=== PATIENT | female | born 1935 | race Caucasian/White ===

== ENCOUNTER 2016-07-22 10:41 | Emergency (ER) | payer OTHER ==
--- NOTE | 2016-07-22 14:17 | DIAGNOSTIC IMAGING REPORT ---
PROCEDURE: CT ABDOMEN/PELVIS W/O CONTRAST INDICATION: Right lower quadrant pain. Initial encounter. TECHNIQUE: Noncontrast axial images were obtained of the entire abdomen and pelvis with sagittal and coronal reformations. COMPARISON: Abdominal ultrasound 10/08/[address] abdomen/pelvis 06/28/2011. FINDINGS: ABDOMEN: Mild right basilar scarring. Calcified granuloma. Stable moderate cardiomegaly and moderate pericardial effusion with pacing wire. Small bilateral pleural effusions. Cholecystectomy. Irregular liver contour. Pancreas, spleen and adrenal glands are normal. Bilateral renal atrophy and bilateral renal cysts. Mid right renal cortical calcified scar. Moderate atherosclerosis. PELVIS: Normal appendix. Hysterectomy. Normal bladder. There is no pelvic mass, inflammatory changes or free fluid. Osteopenia. Moderate chronic- appearing L1 and severe L2 fractures, new since the prior CT scan. Moderately severe degenerative changes. IMPRESSION: 1. Normal appendix 2. Cholecystectomy and hysterectomy 3. Irregular liver contour suggestive of cirrhosis 4. Bilateral renal atrophy 5. Moderate cardiomegaly and moderate pericardial effusion 6. Small bilateral pleural effusions 7. Results discussed with Dr. Delaney All CT scans at this facility use dose modulation, iterative reconstruction, and/or weight-based dosing when appropriate to reduce radiation dose to as low as reasonably achievable.
--- NOTE | 2016-07-22 15:20 | ED CLINICAL REPORT ---
Clinical Report - Physicians/Mid Levels [facility] [address] [place] [address] 07/22/2016 10:43 Patient: BAR FRYE Time Seen: 11:24. Arrived- By private vehicle. Historian- patient and family. HISTORY OF PRESENT ILLNESS Chief Complaint: ABDOMINAL PAIN. At its maximum, severity described as 9 / 10. When seen in the E.D., severity described as 9 / 10. This started 5 days ago and is still present. It was abrupt in onset. It is described as "pain" and it is described as located in the right flank and the right abdomen and right lower quadrant. The patient has had nausea and loss of appetite. No vomiting. Similar symptoms previously: ( PUD). Recent medical care: The patient was seen recently at another facility in a clinic. ( Yesterday - [facility] visit. Told to come to ED today. Those records are requested but are available in time for help in decision making.). REVIEW OF SYSTEMS The patient has had a hysterectomy. No constipation, black stools, difficulty with urination or urination or pain with urination. No urinary frequency, chills, fever, ear pain or sore throat. No chest pain or difficulty breathing. Last bowel movement: today. The patient has had abdominal pain. PAST HISTORY PCP: Dr Sandra RENEE Ops: Hyst, Omentectomy, GB, Pacemaker/defibrillator, bilateral carpal tunnel Illness: Glaucoma, CHF, Aortic stenosis (not operative candidate) contrast allergy From old record: PROBLEMS: Cholecystitis. Peptic Ulcer Disease. Spinal fractures. Chronic Fatigue Syndrome. Gout. Congestive Heart Failure. Diabetes Mellitus. Hypothyroidism. Abdominal Pain. Immunizations. ADDITIONAL SURGERIES: AICD. Cholecystectomy. Hemorrhoidectomy. Hysterectomy. Pacemaker. ADDITIONAL NOTES The nursing notes have been reviewed. PHYSICAL EXAM Vital Signs: 07/22/2016 14:34 BP: 101/61. HR: 87. RR: 20. O2 saturation: 98%. Pain level now: 09/25. 07/22/2016 13:59 BP: 98/61. HR: 87. RR: 20. O2 saturation: 98%. Pain level now: 09/25. 07/22/2016 11:02 BP: 102/69. HR: 81. RR: 20. O2 saturation: 97%. Temp: 97.6 F. Pain level now: 11/26. Appearance: Alert. No acute distress. Eyes: No scleral icterus or pale conjunctivae. ENT: Pharynx normal. Neck: Normal inspection. (generous neck veins.). CVS: Heart sounds normal. Respiratory: No respiratory distress. Breath sounds normal. Abdomen: Tenderness in the upper abdomen, right upper quadrant and right side of the abdomen. No organomegaly. No mass. Back: No CVA tenderness. Skin: Skin warm. Normal skin color. Extremities: Extremities exhibit normal ROM. No lower extremity edema. Neuro: No alteration in mental status. LABS, X-RAYS, AND EKG Abdominal CT: PROCEDURE: CT ABDOMEN/PELVIS W/O CONTRAST INDICATION: Right lower quadrant pain. Initial encounter. TECHNIQUE: Noncontrast axial images were obtained of the entire abdomen and pelvis with sagittal and coronal reformations. COMPARISON: Abdominal ultrasound 10/08/[address] abdomen/pelvis 06/28/2011. FINDINGS: ABDOMEN: Mild right basilar scarring. Calcified granuloma. Stable moderate cardiomegaly and moderate pericardial effusion with pacing wire. Small bilateral pleural effusions. Cholecystectomy. Irregular liver contour. Pancreas, spleen and adrenal glands are normal. Bilateral renal atrophy and bilateral renal cysts. Mid right renal cortical calcified scar. Moderate atherosclerosis. PELVIS: Normal appendix. Hysterectomy. Normal bladder. There is no pelvic mass, inflammatory changes or free fluid. Osteopenia. Moderate chronic-appearing L1 and severe L2 fractures, new since the prior CT scan. Moderately severe degenerative changes. IMPRESSION: 1. Normal appendix 2. Cholecystectomy and hysterectomy 3. Irregular liver contour suggestive of cirrhosis 4. Bilateral renal atrophy 5. Moderate cardiomegaly and moderate pericardial effusion 6. Small bilateral pleural effusions 7. Results discussed with Dr. Delaney Electronically Final signed by:Cristiano Arnold MD 07/22/2016 2:16:59 PM. Laboratory Tests: UA-Culture if indicated: (SUMEET: 07/22/2016 10:50) ( MsgRcvd 07/22/2016 11:46) Final results Test Result Flag Units (Reference) URINE COLOR YELLOW URINE APPEARANCE CLEAR URINE GLUCOSE NEGATIVE (NEGATIVE) URINE BILIRUBIN NEGATIVE (NEGATIVE) URINE KETONE NEGATIVE (NEGATIVE) URINE SPECIFIC GRAVITY 1.015 (1.010-1.030) URINE PH 5.0 (5.0-8.0) URINE PROTEIN NEGATIVE (NEGATIVE) URINE UROBILINOGEN 0.2 EU/dL (0.2-1.0) URINE NITRITE NEGATIVE (NEGATIVE) URINE BLOOD NEGATIVE (NEGATIVE) URINE LEUK ESTERASE NEGATIVE (NEGATIVE) URINE RBC 0-1 rbc/hpf (0-1) URINE WBC 0-1 wbc/hpf (0-1) URINE EPITHELIAL CELLS 3-5 EPI/hpf (0-5) URINE BACTERIA TRACE (<1+) (NONE SEEN) URINE COMMENT CULT NOT INDICATED URINE CULTURES ARE SET-UP BASED ON THE FOLLOWING CRITERIA:POSITIVE NITRITEPOSITIVE LEUKOCYTE ESTERASEGREATER THAN 10 WHITE BLOOD CELLSMODERATE (2+) OR GREATER BACTERIA CBC w Diff: (SUMEET: 07/22/2016 11:25) ( [facility] 07/22/2016 11:32) Final results Test Result Flag Units (Reference) WHITE BLOOD COUNT 5.5 K/uL (4.5-11.5) RED BLOOD COUNT 4.42 M/uL (4.00-5.20) HEMOGLOBIN 13.5 gm/dL (12.0-16.0) HEMATOCRIT 41.9 % (36.0-46.0) MEAN CELL VOLUME 95 fL (80-100) MEAN CORPUSCULAR HGB 31 pg (26-34) MEAN CORPUSCULAR HGB CONC 32 g/dL (31-37) RED CELL DISTRIBUTION WIDTH 14.5 % (11.6-14.8) PLATELET COUNT 105 L K/uL (150-400) NEUTROPHIL % 61.8 % (50-75) LYMPH % 20.2 L % (25-40) MONO % 13.8 % (3-14) EOSINOPHIL % 3.2 % (0-4) BASOPHIL % 1.0 % (0-2) PT with INR: (SUMEET: 07/22/2016 11:25) ( [facility] 07/22/2016 11:41) Final results Test Result Flag Units (Reference) INR 1.1 (0.8-1.2) Low Intensity Therapy: INR 1.5-2.0 PT range 18.5-23.1Mod.Intensity Therapy: INR 2.0-3.0 PT range 23.1-31.5High Intensity Therapy: INR 2.5-3.5 PT range 27.4-35.5High Intensity Therapy 2: INR 3.0-4.0 PT range 31.5-39.3 BNP: (SUMEET: 07/22/2016 12:50) ( [facility] 07/22/2016 13:46) Final results Test Result Flag Units (Reference) B-TYPE NATRIURETIC PEPTIDE 112 H pg/ml (5-100) Lactate, Serum: (SUMEET: 07/22/2016 11:41) ( [facility] 07/22/2016 12:11) Final results Test Result Flag Units (Reference) LACTIC ACID 0.6 mmol/L (0.4-2.0) CMP: (SUMEET: 07/22/2016 11:25) ( [facility] 07/22/2016 11:51) Final results Test Result Flag Units (Reference) GLUCOSE 91 mg/dL (70-110) BUN 58 H mg/dL (7-18) CREATININE 1.4 H mg/dL (0.6-1.3) Estimated GFR 38.26 mL/min Estimated GFR- 46.37 mL/min Note: Persistent reduction over 3 months in eGFR<60 mL/min/1.73 m2 defines CKD. Patients with eGFR values>=60 mL/min/1.73 m2 may also have CKD if evidence ofpersistent proteinuria. Additional information may be foundat [email or web address]. SODIUM 143 mmol/L (136-145) POTASSIUM 4.4 mmol/L (3.5-5.1) CHLORIDE 104 mmol/L (98-107) CARBON DIOXIDE 29 mmol/L (21-32) CALCIUM 9.2 mg/dL (8.5-10.1) TOTAL PROTEIN 7.5 g/dL (6.4-8.2) ALBUMIN 3.7 g/dL (3.3-5.0) BILIRUBIN, TOTAL 1.7 H mg/dL (0.0-1.0) ALKALINE PHOSPHATASE 104 U/L (46-116) AST (SGOT) 31 U/L (15-37) ALT (SGPT) 26 U/L (12-78) LIPASE 359 U/L (73-393) AMYLASE 105 U/L (25-115) . PROGRESS AND PROCEDURES Course of Care: 13:11 07/22/16. Reexam. Tenderness persists. No peritoneal signs. History, physical exam, lab and CT do not support acute surgical abdomen at this time. Careful follow up as soon as 12 hours is indicated if pain is not improved. Ms Frye wonders it this could be a return of prior PUD symptoms. That is possible. I will instantiate appropriate treatment. Disposition: Discharged. Condition: good. CLINICAL IMPRESSION Acute abdominal pain of unknown cause. INSTRUCTIONS (WE WILL DO A TRIAL OF ULCER TREATMENT WITH CARAFATE AND TAGAMET MAALOX AND MYLANTA RE CHECK IN 12 HOURS UNLESS PAIN IS BETTER 12 HOURS OF CLEAR LIQUIDS.). Prescription Medications: Zofran 4 mg: Take 1 orally every six hours as needed for nausea/vomiting. Dispense ten (10). No refills. Substitution is permissible. Carafate 1 gm tablets: take 1 orally four times daily (1 hour before meals and at bedtime). Dispense sixty (60). No refills. Substitution is permissible. Tagamet 400 mg: Take 1 orally every 12 hours. Dispense thirty (30). No refills. Substitution is permissible. Oxycodone/APAP 5 mg/325 mg: take 1-2 tablets orally every 4 hours as needed for pain. Dispense fifteen (15). No refill. Follow-up: Follow up with your doctor Sunday. Understanding of the discharge instructions verbalized by patient and family. (Electronically signed by Bart Delaney MD 07/25/2016 5:21)
--- NOTE | 2016-07-22 15:20 | ED CLINICAL REPORT ---
Clinical Report - Physicians/Mid Levels [facility] [address] [place] [address] 07/22/2016 10:43 Patient: BAR FRYE Time Seen: 11:24. Arrived- By private vehicle. Historian- patient and family. HISTORY OF PRESENT ILLNESS Chief Complaint: ABDOMINAL PAIN. At its maximum, severity described as 9 / 10. When seen in the E.D., severity described as 9 / 10. This started 5 days ago and is still present. It was abrupt in onset. It is described as "pain" and it is described as located in the right flank and the right abdomen and right lower quadrant. The patient has had nausea and loss of appetite. No vomiting. Similar symptoms previously: ( PUD). Recent medical care: The patient was seen recently at another facility in a clinic. ( Yesterday - [facility] visit. Told to come to ED today. Those records are requested but are available in time for help in decision making.). REVIEW OF SYSTEMS The patient has had a hysterectomy. No constipation, black stools, difficulty with urination or urination or pain with urination. No urinary frequency, chills, fever, ear pain or sore throat. No chest pain or difficulty breathing. Last bowel movement: today. The patient has had abdominal pain. PAST HISTORY PCP: Dr Sandra RENEE Ops: Hyst, Omentectomy, GB, Pacemaker/defibrillator, bilateral carpal tunnel Illness: Glaucoma, CHF, Aortic stenosis (not operative candidate) contrast allergy From old record: PROBLEMS: Cholecystitis. Peptic Ulcer Disease. Spinal fractures. Chronic Fatigue Syndrome. Gout. Congestive Heart Failure. Diabetes Mellitus. Hypothyroidism. Abdominal Pain. Immunizations. ADDITIONAL SURGERIES: AICD. Cholecystectomy. Hemorrhoidectomy. Hysterectomy. Pacemaker. ADDITIONAL NOTES The nursing notes have been reviewed. PHYSICAL EXAM Vital Signs: 07/22/2016 14:34 BP: 101/61. HR: 87. RR: 20. O2 saturation: 98%. Pain level now: 09/25. 07/22/2016 13:59 BP: 98/61. HR: 87. RR: 20. O2 saturation: 98%. Pain level now: 09/25. 07/22/2016 11:02 BP: 102/69. HR: 81. RR: 20. O2 saturation: 97%. Temp: 97.6 F. Pain level now: 11/26. Appearance: Alert. No acute distress. Eyes: No scleral icterus or pale conjunctivae. ENT: Pharynx normal. Neck: Normal inspection. (generous neck veins.). CVS: Heart sounds normal. Respiratory: No respiratory distress. Breath sounds normal. Abdomen: Tenderness in the upper abdomen, right upper quadrant and right side of the abdomen. No organomegaly. No mass. Back: No CVA tenderness. Skin: Skin warm. Normal skin color. Extremities: Extremities exhibit normal ROM. No lower extremity edema. Neuro: No alteration in mental status. LABS, X-RAYS, AND EKG Abdominal CT: PROCEDURE: CT ABDOMEN/PELVIS W/O CONTRAST INDICATION: Right lower quadrant pain. Initial encounter. TECHNIQUE: Noncontrast axial images were obtained of the entire abdomen and pelvis with sagittal and coronal reformations. COMPARISON: Abdominal ultrasound 10/08/[address] abdomen/pelvis 06/28/2011. FINDINGS: ABDOMEN: Mild right basilar scarring. Calcified granuloma. Stable moderate cardiomegaly and moderate pericardial effusion with pacing wire. Small bilateral pleural effusions. Cholecystectomy. Irregular liver contour. Pancreas, spleen and adrenal glands are normal. Bilateral renal atrophy and bilateral renal cysts. Mid right renal cortical calcified scar. Moderate atherosclerosis. PELVIS: Normal appendix. Hysterectomy. Normal bladder. There is no pelvic mass, inflammatory changes or free fluid. Osteopenia. Moderate chronic-appearing L1 and severe L2 fractures, new since the prior CT scan. Moderately severe degenerative changes. IMPRESSION: 1. Normal appendix 2. Cholecystectomy and hysterectomy 3. Irregular liver contour suggestive of cirrhosis 4. Bilateral renal atrophy 5. Moderate cardiomegaly and moderate pericardial effusion 6. Small bilateral pleural effusions 7. Results discussed with Dr. Delaney Electronically Final signed by:Cristiano Arnold MD 07/22/2016 2:16:59 PM. Laboratory Tests: UA-Culture if indicated: (SUMEET: 07/22/2016 10:50) ( MsgRcvd 07/22/2016 11:46) Final results Test Result Flag Units (Reference) URINE COLOR YELLOW URINE APPEARANCE CLEAR URINE GLUCOSE NEGATIVE (NEGATIVE) URINE BILIRUBIN NEGATIVE (NEGATIVE) URINE KETONE NEGATIVE (NEGATIVE) URINE SPECIFIC GRAVITY 1.015 (1.010-1.030) URINE PH 5.0 (5.0-8.0) URINE PROTEIN NEGATIVE (NEGATIVE) URINE UROBILINOGEN 0.2 EU/dL (0.2-1.0) URINE NITRITE NEGATIVE (NEGATIVE) URINE BLOOD NEGATIVE (NEGATIVE) URINE LEUK ESTERASE NEGATIVE (NEGATIVE) URINE RBC 0-1 rbc/hpf (0-1) URINE WBC 0-1 wbc/hpf (0-1) URINE EPITHELIAL CELLS 3-5 EPI/hpf (0-5) URINE BACTERIA TRACE (<1+) (NONE SEEN) URINE COMMENT CULT NOT INDICATED URINE CULTURES ARE SET-UP BASED ON THE FOLLOWING CRITERIA:POSITIVE NITRITEPOSITIVE LEUKOCYTE ESTERASEGREATER THAN 10 WHITE BLOOD CELLSMODERATE (2+) OR GREATER BACTERIA CBC w Diff: (SUMEET: 07/22/2016 11:25) ( [facility] 07/22/2016 11:32) Final results Test Result Flag Units (Reference) WHITE BLOOD COUNT 5.5 K/uL (4.5-11.5) RED BLOOD COUNT 4.42 M/uL (4.00-5.20) HEMOGLOBIN 13.5 gm/dL (12.0-16.0) HEMATOCRIT 41.9 % (36.0-46.0) MEAN CELL VOLUME 95 fL (80-100) MEAN CORPUSCULAR HGB 31 pg (26-34) MEAN CORPUSCULAR HGB CONC 32 g/dL (31-37) RED CELL DISTRIBUTION WIDTH 14.5 % (11.6-14.8) PLATELET COUNT 105 L K/uL (150-400) NEUTROPHIL % 61.8 % (50-75) LYMPH % 20.2 L % (25-40) MONO % 13.8 % (3-14) EOSINOPHIL % 3.2 % (0-4) BASOPHIL % 1.0 % (0-2) PT with INR: (SUMEET: 07/22/2016 11:25) ( [facility] 07/22/2016 11:41) Final results Test Result Flag Units (Reference) INR 1.1 (0.8-1.2) Low Intensity Therapy: INR 1.5-2.0 PT range 18.5-23.1Mod.Intensity Therapy: INR 2.0-3.0 PT range 23.1-31.5High Intensity Therapy: INR 2.5-3.5 PT range 27.4-35.5High Intensity Therapy 2: INR 3.0-4.0 PT range 31.5-39.3 BNP: (SUMEET: 07/22/2016 12:50) ( [facility] 07/22/2016 13:46) Final results Test Result Flag Units (Reference) B-TYPE NATRIURETIC PEPTIDE 112 H pg/ml (5-100) Lactate, Serum: (SUMEET: 07/22/2016 11:41) ( [facility] 07/22/2016 12:11) Final results Test Result Flag Units (Reference) LACTIC ACID 0.6 mmol/L (0.4-2.0) CMP: (SUMEET: 07/22/2016 11:25) ( [facility] 07/22/2016 11:51) Final results Test Result Flag Units (Reference) GLUCOSE 91 mg/dL (70-110) BUN 58 H mg/dL (7-18) CREATININE 1.4 H mg/dL (0.6-1.3) Estimated GFR 38.26 mL/min Estimated GFR- 46.37 mL/min Note: Persistent reduction over 3 months in eGFR<60 mL/min/1.73 m2 defines CKD. Patients with eGFR values>=60 mL/min/1.73 m2 may also have CKD if evidence ofpersistent proteinuria. Additional information may be foundat [email or web address]. SODIUM 143 mmol/L (136-145) POTASSIUM 4.4 mmol/L (3.5-5.1) CHLORIDE 104 mmol/L (98-107) CARBON DIOXIDE 29 mmol/L (21-32) CALCIUM 9.2 mg/dL (8.5-10.1) TOTAL PROTEIN 7.5 g/dL (6.4-8.2) ALBUMIN 3.7 g/dL (3.3-5.0) BILIRUBIN, TOTAL 1.7 H mg/dL (0.0-1.0) ALKALINE PHOSPHATASE 104 U/L (46-116) AST (SGOT) 31 U/L (15-37) ALT (SGPT) 26 U/L (12-78) LIPASE 359 U/L (73-393) AMYLASE 105 U/L (25-115) . PROGRESS AND PROCEDURES Course of Care: 13:11 07/22/16. Reexam. Tenderness persists. No peritoneal signs. History, physical exam, lab and CT do not support acute surgical abdomen at this time. Careful follow up as soon as 12 hours is indicated if pain is not improved. Ms Frye wonders it this could be a return of prior PUD symptoms. That is possible. I will instantiate appropriate treatment. Disposition: Discharged. Condition: good. CLINICAL IMPRESSION Acute abdominal pain of unknown cause. INSTRUCTIONS (WE WILL DO A TRIAL OF ULCER TREATMENT WITH CARAFATE AND TAGAMET MAALOX AND MYLANTA RE CHECK IN 12 HOURS UNLESS PAIN IS BETTER 12 HOURS OF CLEAR LIQUIDS.). Prescription Medications: Zofran 4 mg: Take 1 orally every six hours as needed for nausea/vomiting. Dispense ten (10). No refills. Substitution is permissible. Carafate 1 gm tablets: take 1 orally four times daily (1 hour before meals and at bedtime). Dispense sixty (60). No refills. Substitution is permissible. Tagamet 400 mg: Take 1 orally every 12 hours. Dispense thirty (30). No refills. Substitution is permissible. Oxycodone/APAP 5 mg/325 mg: take 1-2 tablets orally every 4 hours as needed for pain. Dispense fifteen (15). No refill. Follow-up: Follow up with your doctor Sunday. Understanding of the discharge instructions verbalized by patient and family. (Electronically signed by Bart Delaney MD 07/25/2016 5:21)
--- NOTE | 2016-07-22 15:20 | ED NURSING NOTES ---
Clinical Report - Nurses [facility] [address] [place] [address] 07/22/2016 10:43 Patient: BAR VELA TRIAGE Triage time 11:Jul 22 2016. Acuity: LEVEL 3. Chief Complaint: ABDOMINAL PAIN and NAUSEA. Alert. No acute distress. MARY COMA SCORE: [place] Coma Scale: 15- eyes open spontaneously (4); best verbal response- oriented x 4 (5); best motor response- obeys commands (6). --11:09 Joycelyn Palacios R.N. 11:02 07/22/16. BP: 102/69. HR: 81. RR: 20. O2 saturation: 97%. Temp: 97.6 F. Pain level now: 11/26. --11:09 Joycelyn Palacios R.N. Weight: 81.6 kg stated. Height/Length: 64 inches Per Patient. BMI: 30.9. --11:03 Joycelyn Palacios R.N. Medications Albuterol Sulfate HFA Inhalation. Allopurinol Oral. Amoxicillin-Pot Clavulanate ER Oral. Aspirin 81 mg. Candesartan Cilexetil Oral. Carvedilol Oral. Colchicine Oral. Docusate Sodium. Fluticasone Propionate. Fluticasone Propionate Nasal. Furosemide. Nystatin Mouth/Throat. Simethicone Oral. Spironolactone Oral. Thyroid Oral. Triaamcinolone. Triamcinolone & Emollient External. --11:05 Joycelyn Palacios R.N. Allergies Ciprofloxacin. Clindamycin HCl. --11:05 Joycelyn Palacios R.N. IV Contrast. Mycins. Streptomycin Sulfate. Toprol XL. --11:05 Joycelyn Palacios R.N. History Arrived by private vehicle. Historian: patient. Accompanied by family and son. Onset. (about 4 days ago). She has had diarrhea. Last oral intake by patient was last night. Treatment INSTRUCTIONAL SERVICES SPECIALIST: Seen within the last 30 days in a clinic; xrays done; labs done. PAST MEDICAL HX: Immunizations: up-to-date. The patient has had a hysterectomy. Denies current . SOCIAL HX: Smoker- current status unknown. No alcohol use or drug use. No recent travel. No infectious disease exposure. No known contact with a sick individual. SELF HARM ASSESSMENT: A self harm assessment was performed. The patient answered "no" to the question "Do you have thoughts of harming or killing yourself?". FALL RISK ASSESSMENT: Fall risk assessment completed. No fall risk identified. NUTRITIONAL RISK ASSESSMENT: The nutritional risk assessment revealed no deficiencies. FUNCTIONAL ASSESSMENT: Functional assessment: no impairments noted. LEARNING NEEDS ASSESSMENT: The learning needs assessment revealed no barriers. ABUSE ASSESSMENT: Abuse assessment: The patient was asked "Do you feel safe in your home?". SKIN INTEGRITY ASSESSMENT: Skin integrity risk assessment completed. No skin integrity risk identified. --11: Joycelyn Palacios R.N. PROBLEMS: Cholecystitis. Peptic Ulcer Disease. Spinal fractures. Chronic Fatigue Syndrome. Gout. Congestive Heart Failure. Diabetes Mellitus. Hypothyroidism. Abdominal Pain. Immunizations. --11: Joycelyn Palacios R.N. ADDITIONAL SURGERIES: AICD. Cholecystectomy. Hemorrhoidectomy. Hysterectomy. Pacemaker. --11: Joycelyn Palacios R.N. Interventions ID and allergy band on patient. ABDOMINAL PAIN protocol initiated. To room. --11: Joycelyn Palacios R.N. PHYSICAL ASSESSMENT GENERAL / NEURO / PSYCH: Alert. Oriented X 4. Appears in pain. RESPIRATORY: Respirations not labored. Decreased breath sounds. CVS: Capillary refill less than 2 seconds and is greater than 2 seconds. GI / : Abdomen soft and nontender. SKIN: Skin is warm and dry. --11:12 Joycelyn Palacios R.N. NURSING PROGRESS NOTES The plan of care for this patient includes an assessment with efforts to address comfort measures; the presence of pain. This plan of care was discussed with the patient and family. Patient gowned. Head of bed elevated. Patient identifiers checked. Call light placed in reach. Side rails up x 1. Bed placed in lowest position. Brakes of bed on. --11:12 Joycelyn Palacios R.N. Patient ID band checked for patient name and birthdate: patient confirmed. Clean catch urine collected with return of yellow-colored clear urine; sample sent to lab for urinalysis and culture. Specimen labeled in the presence of the patient. --11:13 Joycelyn Palacios R.N. 11:31 07/22/2016 Site #1 started via IV in the left forearm with an 20g angiocath, with aseptic technique and good blood return; one attempt. Blood drawn: rainbow set. Labeled in the presence of the patient and sent to the lab. Saline lock flushed with 10 mL saline. --11: Joycelyn Palacios R.N. 11:07/22/2016 Started bag #1 1000 mL IV Fluids IV NS (Saline); at 25 mL/hr over 4 hour(s) via site #1 via IV pump. Allergies verified and confirmed 5 rights. IV patency established. IV site checked: no pain, redness, or swelling. IV flushed thoroughly pre- and post-medication administration. --11: Joycelyn Palacios R.N. 13:44 07/22/2016 Zofran (Ondansetron HCl) IVP 4 mg given over 2 minute(s) via site #1. Allergies verified and confirmed 5 rights. IV patency established. IV site checked: no pain, redness, or swelling. IV flushed thoroughly pre- and post-medication administration. IVP given by RN. --13:54 Joycelyn Palacios R.N. 13:45 07/22/2016 Dilaudid (HYDROmorphone HCl PF) IVP 0.25 mg given over 1 minute(s) via site #1. Allergies verified, confirmed 5 rights and sedative warning given to the patient. IV patency established. IV site checked: no pain, redness, or swelling. IV flushed thoroughly pre- and post-medication administration. IVP given by RN. --13:55 Joycelyn Palacios R.N. 13:55 07/22/2016 Maalox (Magnesium-Aluminum) PO Oral Suspension 15 mL given. Allergies verified and confirmed 5 rights. --13:55 Joycelyn Palacios R.N. 13:59 07/22/16. BP: 98/61. HR: 87. RR: 20. O2 saturation: 98%. Pain level now: 09/25. --14:00 Joycelyn Palacios R.N. The patient is calm and resting quietly. Overall patient status is the same- she states feels better. --14:36 Joycelyn Palacios R.N. 14:34 07/22/16. BP: 101/61. HR: 87. RR: 20. O2 saturation: 98%. Pain level now: 09/25. --14:36 Joycelyn Palacios R.N. DISPOSITION / DISCHARGE Departure time: 15:Jul 22 2016. Condition at departure: improved. No learning barriers present. Discharge instructions provided and reviewed with the patient. Reviewed medication(s) side effects, precautions, dosing and course information. Prescription(s) given to the patient. Reviewed referral to a primary care physician. Patient verbalized understanding. Written instructions provided in [place]. The patient was discharged home and accompanied by family and son. She left the Emergency Department ambulatory and via private vehicle. Family member driving (son). --15:06 Joycelyn Palacios R.N. 15:07/22/16. BP: 99/61. HR: 82. RR: 20. O2 saturation: 97%. Pain level now: 09/25. --15:06 Joycelyn Palacios R.N. FALL RISK ASSESSMENT: Fall risk assessment completed. No fall risk identified. --15:06 Joycelyn Palacios R.N. 15:07/22/2016 Dilaudid (HYDROmorphone HCl PF) IVP 0.25 mg given over 1 minute(s) via site #1. Allergies verified, confirmed 5 rights and sedative warning given to the patient. IV patency established. IV site checked: no pain, redness, or swelling. IV flushed thoroughly pre- and post-medication administration. IVP given by RN. --15:07 Joycelyn Palacios R.N. 15:07/22/2016 IV Fluids IV NS Discontinued: bag #1 discontinued. Total amount infused: 400 mL. IV patency established. IV site checked: no pain, redness, or swelling. IV flushed thoroughly. --15:07 Joycelyn Palacios R.N. Locked/Released at 07/22/2016 21:02 by Joycelyn Palacios R.N.
--- NOTE | 2016-07-22 15:20 | ED ORDER SUMMARY ---
..... Patient: MIRIAN August OrderSheet [facility] VisitID: [id number] [address] [place] [address] 80y, F Registration Date/Time: 07/22/2016 ORDER SHEET Weight: 81.6 kg (stated) Allergies: Ciprofloxacin, Clindamycin HCl, IV Contrast, Mycins, Streptomycin Sulfate, Toprol XL GENERAL ORDERS: CBC w Diff Urgent (11:07/22/2016 KKnebel R.N. per protocol) (11:27 KKnebel R.N.) (Cancelled: Other11:27 KKnebel R.N.) CMP Urgent (11:07/22/2016 KKnebel R.N. per protocol) (11:27 KKnebel R.N.) (Cancelled: Other11:27 KKnebel R.N.) UA-Culture if indicated Urgent (11:07/22/2016 KKnebel R.N. per protocol) (11:27 KKnebel R.N.) (Cancelled: Other11:27 KKnebel R.N.) PT with INR Urgent (11:07/22/2016 KKnebel R.N. per protocol) (11:27 KKnebel R.N.) (Cancelled: Other11:27 KKnebel R.N.) Amylase Urgent (11:07/22/2016 KKnebel R.N. per protocol) (11:27 KKnebel R.N.) (Cancelled: Other11:27 KKnebel R.N.) Lipase Urgent (11:07/22/2016 KKnebel R.N. per protocol) (Cancelled: Other11:26 KKnebel R.N.) Vitals (11:07/22/2016 KKnebel R.N. per protocol) (11:27 KKnebel R.N.) (Cancelled: Other11:27 KKnebel R.N.) NPO (11:07/22/2016 KKnebel R.N. per protocol) (11:27 KKnebel R.N.) (Cancelled: Other11:27 KKnebel R.N.) CBC w Diff Urgent (11:07/22/2016 KKnebel R.N. per protocol) (11:29 KKnebel R.N.) CMP Urgent (11:28 07/22/2016 KKnebel R.N. per protocol) (11:29 KKnebel R.N.) UA-Culture if indicated Urgent (11:28 07/22/2016 KKnebel R.N. per protocol) (11:29 KKnebel R.N.) PT with INR Urgent (11:28 07/22/2016 KKnebel R.N. per protocol) (11:29 KKnebel R.N.) Amylase Urgent (11:07/22/2016 KKnebel R.N. per protocol) (11:29 KKnebel R.N.) Urine Urgent (11:07/22/2016 KKnebel R.N. per protocol) (Cancelled: Other11:30 KKnebel R.N.) NPO (11:07/22/2016 KKnebel R.N. per protocol) (11:29 KKnebel R.N.) Vitals (11:07/22/2016 KKnebel R.N. per protocol) (11:29 KKnebel R.N.) Lipase Urgent (11:30 07/22/2016 KKnebel R.N. per protocol) (11:30 KKnebel R.N.) Lactate, Serum Urgent (11:32 07/22/2016 Katarina CONROY) (11:38 KKnebel R.N.) - (RECORDS FROM YESTERDAY, [facility]) (11:32 07/22/2016 Katarina CONROY) (Ack 11:45 [place]) (12:09 KKnebel R.N.) BNP Urgent (13:11 07/22/2016 Katarina CONROY) (Ack 13:22 [place]) (13:57 KKnebel R.N.) - (INCREASE IVF TO 200 ML PER HOUR FOR 2 HOURS.) (13:12 07/22/2016 Katarina CONROY) (13:56 KKnebel R.N.) CT Abd/Pel wo Cont Urgent (13:13 07/22/2016 Katarina CONROY) (Ack 13:22 [place]) (13:48 [place]) MEDICATION ORDERS: GI Cocktail WHITE PO 30 mL with Lidocaine Viscous Mouth/Throat 15 mL, Maalox Plus Oral 15 mL (NOW) (13:22 07/22/2016 Katarina CONROY) (13:55 KKnebel R.N.) IV FLUIDS: IV NS with Normal Saline 1 Liter: initial bolus none -, then TKO - (NOW) (11:14 07/22/2016 KKnebel R.N. per protocol) (Cancelled: Other11:27 KKnebel R.N.) IV Saline Lock (11:15 07/22/2016 KKnebel R.N. per protocol) (Cancelled: Other11:27 KKnebel R.N.) IV NS with Normal Saline 1 Liter: initial bolus none -, then TKO - (NOW) (11:28 07/22/2016 KKnebel R.N. per protocol) (11:31 KKnebel R.N.) IV Saline Lock (11:28 07/22/2016 KKnebel R.N. per protocol) (11:31 KKnebel R.N.) Zofran IV 4 mg (NOW) (13:17 07/22/2016 Katarina CONROY) (13:54 KKnebel R.N.) Dilaudid IV 0.25 mg + 0.25 mg IV (NOW) (13:17 07/22/2016 Katarina CONROY) (13:55 KKnebel R.N.) ORDER SHEET NOTES: [Electronically signed by Joycelyn Palacios R.N. (21:02 07/22/2016)] [Electronically signed by Bart Delaney MD (05:21 07/25/2016)] [Electronically locked/signed by Joycelyn Palacios R.N. (21:02 07/22/2016)]
--- NOTE | 2016-07-22 15:20 | ED ORDER SUMMARY ---
..... Patient: MIRIAN August OrderSheet [facility] VisitID: [id number] [address] [place] [address] 80y, F Registration Date/Time: 07/22/2016 ORDER SHEET Weight: 81.6 kg (stated) Allergies: Ciprofloxacin, Clindamycin HCl, IV Contrast, Mycins, Streptomycin Sulfate, Toprol XL GENERAL ORDERS: CBC w Diff Urgent (11:07/22/2016 KKnebel R.N. per protocol) (11:27 KKnebel R.N.) (Cancelled: Other11:27 KKnebel R.N.) CMP Urgent (11:07/22/2016 KKnebel R.N. per protocol) (11:27 KKnebel R.N.) (Cancelled: Other11:27 KKnebel R.N.) UA-Culture if indicated Urgent (11:07/22/2016 KKnebel R.N. per protocol) (11:27 KKnebel R.N.) (Cancelled: Other11:27 KKnebel R.N.) PT with INR Urgent (11:07/22/2016 KKnebel R.N. per protocol) (11:27 KKnebel R.N.) (Cancelled: Other11:27 KKnebel R.N.) Amylase Urgent (11:07/22/2016 KKnebel R.N. per protocol) (11:27 KKnebel R.N.) (Cancelled: Other11:27 KKnebel R.N.) Lipase Urgent (11:07/22/2016 KKnebel R.N. per protocol) (Cancelled: Other11:26 KKnebel R.N.) Vitals (11:07/22/2016 KKnebel R.N. per protocol) (11:27 KKnebel R.N.) (Cancelled: Other11:27 KKnebel R.N.) NPO (11:07/22/2016 KKnebel R.N. per protocol) (11:27 KKnebel R.N.) (Cancelled: Other11:27 KKnebel R.N.) CBC w Diff Urgent (11:07/22/2016 KKnebel R.N. per protocol) (11:29 KKnebel R.N.) CMP Urgent (11:28 07/22/2016 KKnebel R.N. per protocol) (11:29 KKnebel R.N.) UA-Culture if indicated Urgent (11:28 07/22/2016 KKnebel R.N. per protocol) (11:29 KKnebel R.N.) PT with INR Urgent (11:28 07/22/2016 KKnebel R.N. per protocol) (11:29 KKnebel R.N.) Amylase Urgent (11:07/22/2016 KKnebel R.N. per protocol) (11:29 KKnebel R.N.) Urine Urgent (11:07/22/2016 KKnebel R.N. per protocol) (Cancelled: Other11:30 KKnebel R.N.) NPO (11:07/22/2016 KKnebel R.N. per protocol) (11:29 KKnebel R.N.) Vitals (11:07/22/2016 KKnebel R.N. per protocol) (11:29 KKnebel R.N.) Lipase Urgent (11:30 07/22/2016 KKnebel R.N. per protocol) (11:30 KKnebel R.N.) Lactate, Serum Urgent (11:32 07/22/2016 Katarina CONROY) (11:38 KKnebel R.N.) - (RECORDS FROM YESTERDAY, [facility]) (11:32 07/22/2016 Katarina CONROY) (Ack 11:45 [place]) (12:09 KKnebel R.N.) BNP Urgent (13:11 07/22/2016 Katarina CONROY) (Ack 13:22 [place]) (13:57 KKnebel R.N.) - (INCREASE IVF TO 200 ML PER HOUR FOR 2 HOURS.) (13:12 07/22/2016 Katarina CONROY) (13:56 KKnebel R.N.) CT Abd/Pel wo Cont Urgent (13:13 07/22/2016 Katarina CONROY) (Ack 13:22 [place]) (13:48 [place]) MEDICATION ORDERS: GI Cocktail WHITE PO 30 mL with Lidocaine Viscous Mouth/Throat 15 mL, Maalox Plus Oral 15 mL (NOW) (13:22 07/22/2016 Katarina CONROY) (13:55 KKnebel R.N.) IV FLUIDS: IV NS with Normal Saline 1 Liter: initial bolus none -, then TKO - (NOW) (11:14 07/22/2016 KKnebel R.N. per protocol) (Cancelled: Other11:27 KKnebel R.N.) IV Saline Lock (11:15 07/22/2016 KKnebel R.N. per protocol) (Cancelled: Other11:27 KKnebel R.N.) IV NS with Normal Saline 1 Liter: initial bolus none -, then TKO - (NOW) (11:28 07/22/2016 KKnebel R.N. per protocol) (11:31 KKnebel R.N.) IV Saline Lock (11:28 07/22/2016 KKnebel R.N. per protocol) (11:31 KKnebel R.N.) Zofran IV 4 mg (NOW) (13:17 07/22/2016 Katarina CONROY) (13:54 KKnebel R.N.) Dilaudid IV 0.25 mg + 0.25 mg IV (NOW) (13:17 07/22/2016 Katarina CONROY) (13:55 KKnebel R.N.) ORDER SHEET NOTES: [Electronically signed by Joycelyn Paalcios R.N. (21:02 07/22/2016)] [Electronically signed by Bart Delaney MD (05:21 07/25/2016)] [Electronically locked/signed by Jocyelyn Palacios R.N. (21:02 07/22/2016)]
--- NOTE | 2016-07-25 05:22 | ED MED RECONCILIATION SUMMARY ---
Patient: MIRIAN August Medication Reconciliation Report [facility] VisitID: [id number] [address] [place] [address] 80y, F Registration Date/Time: 07/22/2016 Weight: 81.6 kg Height/Length: 64 in. BMI: 30.9 ALLERGIES: Ciprofloxacin, Clindamycin HCl, IV Contrast, Mycins, Streptomycin Sulfate, Toprol XL The patient's Home Medications are listed below: THE FOLLOWING MEDICATIONS NEED TO BE RECONCILED: Albuterol Sulfate HFA Inhalation Allopurinol Oral Amoxicillin-Pot Clavulanate ER Oral Aspirin 81 mg Candesartan Cilexetil Oral Carvedilol Oral Colchicine Oral Docusate Sodium Fluticasone Propionate Fluticasone Propionate Nasal Furosemide Nystatin Mouth/Throat Simethicone Oral Spironolactone Oral Thyroid Oral Triaamcinolone Triamcinolone & Emollient External The source(s) of the original Home Medication information: Not obtained. The following Medications were given to the patient in the Emergency Department: IV NS IV Fluids bolus 0, then 25 mL/hr, administered: 07/22/2016 11:31:00 AM Zofran [IVP] IVP 4 mg, administered: 07/22/2016 1:44:00 PM Dilaudid [IVP] IVP 0.25 mg, administered: 07/22/2016 1:45:00 PM Maalox [PO] PO 15 mL, administered: 07/22/2016 1:55:00 PM Dilaudid [IVP] IVP 0.25 mg, administered: 07/22/2016 3:05:00 PM The following Medications were prescribed to the patient: Zofran 4 mg: Take 1 orally every six hours as needed for nausea/vomiting. Dispense ten (10). No refills. Substitution is permissible. -- Bart Delaney MD Carafate 1 gm tablets: take 1 orally four times daily (1 hour before meals and at bedtime). Dispense sixty (60). No refills. Substitution is permissible. -- Bart Delaney MD Tagamet 400 mg: Take 1 orally every 12 hours. Dispense thirty (30). No refills. Substitution is permissible. -- Bart Delaney MD Oxycodone/APAP 5 mg/325 mg: take 1-2 tablets orally every 4 hours as needed for pain. Dispense fifteen (15). No refill. -- Bart Delaney MD
--- NOTE | 2016-07-25 05:22 | ED DISCHARGE INSTRUCTIONS ---
Patient: MIRIAN August General Instructions [facility] VisitID: [id number] [address] [place] [address] 80y, F Registration Date/Time: 07/22/2016 Acute abdominal pain of unknown cause. INSTRUCTIONS (WE WILL DO A TRIAL OF ULCER TREATMENT WITH CARAFATE AND TAGAMET MAALOX AND MYLANTA RE CHECK IN 12 HOURS UNLESS PAIN IS BETTER 12 HOURS OF CLEAR LIQUIDS.). Prescription Medications: Zofran 4 mg: Take 1 orally every six hours as needed for nausea/vomiting. Dispense ten (10). No refills. Substitution is permissible. Carafate 1 gm tablets: take 1 orally four times daily (1 hour before meals and at bedtime). Dispense sixty (60). No refills. Substitution is permissible. Tagamet 400 mg: Take 1 orally every 12 hours. Dispense thirty (30). No refills. Substitution is permissible. Oxycodone/APAP 5 mg/325 mg: take 1-2 tablets orally every 4 hours as needed for pain. Dispense fifteen (15). No refill. Follow-up: Follow up with your doctor Sunday. Understanding of the discharge instructions verbalized by patient and family. ADDITIONAL INFORMATION Abdominal Pain, Unknown Cause (Female) The exact cause of your abdominal (stomach) pain is not certain. This does not mean that this is something to worry about, or the right tests were not done. Everyone likes to know the exact cause of the problem, but sometimes with abdominal pain, there is no clear-cut cause, and this could be a good thing. The good news is that your symptoms can be treated, and you will feel better. Your condition does not seem serious now; however, sometimes the signs of a serious problem may take more time to appear. For this reason,it is important for you to watch for any new symptoms, problems,or worsening of your condition. Over the next few days, the abdominal pain may come and go, or be continuous. Other common symptoms can include nausea and vomiting. Sometimes it can be difficult to tell if you feel nauseous, you may just feel bad and not associate that feeling with nausea. Constipation, diarrhea, and a fever may go along with the pain. The pain may continue even if treated correctly over the following days. Depending on how things go, sometimes the cause can become clear and may require further or different treatment. Additional evaluations, medications, or tests may be needed. Home care Your health care provider may prescribe medications for pain, symptoms, or an infection. Follow the health care provider's instructions for taking these medications. General care Rest until your next exam. No strenuous activities. Try to find positions that ease discomfort. A small pillow placed on the abdomen may help relieve pain. Something warm on your abdomen (such as a heating pad) may help, but be careful not to burn yourself. Diet Do not force yourself to eat, especially if having cramps, vomiting, or diarrhea. Water is important so you do not get dehydrated. Soup may also be good. Sports drinks may also help, especially if they are not too acidic. Make sure you don't drink sugary drinks as this can make things worse. Take liquids in small amounts. Do not guzzle them. Caffeine sometimes makes the pain and cramping worse. Avoid dairy products if you have vomiting or diarrhea. Don't eat large amounts at a time. Wait a few minutes between bites. Eat a diet low in fiber (called a low-residue diet). Foods allowed include refined breads, white rice, fruit and vegetable juices without pulp, tender meats. These foods will pass more easily through the intestine. Avoid whole-grain foods, whole fruits and vegetables, meats, seeds and nuts, fried or fatty foods, dairy, alcohol and spicy foods until your symptoms go away. Follow-up care Follow up with your health care provider as instructed, or if your pain does not begin to improve in the next 24 hours. When to seek medical care Seek prompt medical care if any of the following occur: Pain gets worse or moves to the right lower abdomen New or worsening vomiting or diarrhea Swelling of the abdomen Unable to pass stool for more than three days Fever of 100.4F (38C) or higher, or as directed by your healthcare provider. Blood in vomit or bowel movements (dark red or black color) Jaundice (yellow color of eyes and skin) Weakness, dizziness Chest, arm, back, neck or jaw pain Unexpected vaginal bleeding or missed period Call 911 Call emergency services if any of the following occur: Trouble breathing Confusion Fainting or loss of consciousness Rapid heart rate Seizure Oxycodone Hydrochloride, Acetaminophen Oral tablet What is this medicine? ACETAMINOPHEN; OXYCODONE (a set a RUBIA vilma fen; ox i KOE done) is a pain reliever. It is used to treat mild to moderate pain. How should I use this medicine? Take this medicine by mouth with a full glass of water. Follow the directions on the prescription label. Take your medicine at regular intervals. Do not take your medicine more often than directed. Talk to your automotive painter regarding the use of this medicine in children. Special care may be needed. Patients over 65 years old may have a stronger reaction and need a smaller dose. What side effects may I notice from receiving this medicine? Side effects that you should report to your doctor or health technical healthcare consultant as soon as possible: allergic reactions like skin rash, itching or hives, swelling of the face, lips, or tongue breathing difficulties, wheezing confusion light headedness or fainting spells severe stomach pain yellowing of the skin or the whites of the eyes Side effects that usually do not require medical attention (report to your doctor or health technical healthcare consultant if they continue or are bothersome): dizziness drowsiness nausea vomiting What may interact with this medicine? alcohol antihistamines barbiturates like amobarbital, butalbital, butabarbital, methohexital, pentobarbital, phenobarbital, thiopental, and secobarbital benztropine drugs for bladder problems like solifenacin, trospium, oxybutynin, tolterodine, hyoscyamine, and methscopolamine drugs for breathing problems like ipratropium and tiotropium drugs for certain stomach or intestine problems like propantheline, homatropine methylbromide, glycopyrrolate, atropine, belladonna, and dicyclomine general anesthetics like etomidate, ketamine, nitrous oxide, propofol, desflurane, enflurane, halothane, isoflurane, and sevoflurane medicines for depression, anxiety, or psychotic disturbances medicines for sleep muscle relaxants naltrexone narcotic medicines (opiates) for pain phenothiazines like perphenazine, thioridazine, chlorpromazine, mesoridazine, fluphenazine, prochlorperazine, promazine, and trifluoperazine scopolamine tramadol trihexyphenidyl What if I miss a dose? If you miss a dose, take it as soon as you can. If it is almost time for your next dose, take only that dose. Do not take double or extra doses. Where should I keep my medicine? Keep out of the reach of children. This medicine can be abused. Keep your medicine in a safe place to protect it from theft. Do not share this medicine with anyone. Selling or giving away this medicine is dangerous and against the law. Store at room temperature between 20 and 25 degrees C (68 and 77 degrees F). Keep container tightly closed. Protect from light. This medicine may cause accidental overdose and if it is taken by other adults, children, or pets. Flush any unused medicine down the toilet to reduce the chance of harm. Do not use the medicine after the expiration date. What should I tell my health care provider before I take this medicine? They need to know if you have any of these conditions: brain tumor Crohn's disease, inflammatory bowel disease, or ulcerative colitis drink more than 3 alcohol containing drinks per day drug abuse or addiction head injury heart or circulation problems kidney disease or problems going to the bathroom liver disease lung disease, asthma, or breathing problems an unusual or allergic reaction to acetaminophen, oxycodone, other opioid analgesics, other medicines, foods, dyes, or preservatives or trying to get breast-feeding What should I watch for while using this medicine? Tell your doctor or health technical healthcare consultant if your pain does not go away, if it gets worse, or if you have new or a different type of pain. You may develop tolerance to the medicine. Tolerance means that you will need a higher dose of the medication for pain relief. Tolerance is normal and is expected if you take this medicine for a long time. Do not suddenly stop taking your medicine because you may develop a severe reaction. Your body becomes used to the medicine. This does NOT mean you are addicted. Addiction is a behavior related to getting and using a drug for a non-medical reason. If you have pain, you have a medical reason to take pain medicine. Your doctor will tell you how much medicine to take. If your doctor wants you to stop the medicine, the dose will be slowly lowered over time to avoid any side effects. You may get drowsy or dizzy. Do not drive, use machinery, or do anything that needs mental alertness until you know how this medicine affects you. Do not stand or sit up quickly, especially if you are an older patient. This reduces the risk of dizzy or fainting spells. Alcohol may interfere with the effect of this medicine. Avoid alcoholic drinks. There are different types of narcotic medicines (opiates) for pain. If you take more than one type at the same time, you may have more side effects. Give your health care provider a list of all medicines you use. Your doctor will tell you how much medicine to take. Do not take more medicine than directed. Call emergency for help if you have problems breathing. The medicine will cause constipation. Try to have a bowel movement at least every 2 to 3 days. If you do not have a bowel movement for 3 days, call your doctor or health technical healthcare consultant. Do not take Tylenol (acetaminophen) or medicines that have acetaminophen with this medicine. Too much acetaminophen can be very dangerous. Many nonprescription medicines contain acetaminophen. Always read the labels carefully to avoid taking more acetaminophen. You have been given the following additional information: Abdominal Pain, Unknown Cause, (Female) Oxycodone Hydrochloride, Acetaminophen Oral tablet (Electronically signed by Bart Delaney MD 07/25/2016 5:21)
--- NOTE | 2016-07-25 05:22 | ED MAR SUMMARY ---
..... Medication Administration Record [facility] [address] [place] [address] Patient: BAR VELA Visit ID: [id number] 80y, F Weight: 81.6 kg Height/Length: 64 in BMI: 30.9 ALLERGIES: Ciprofloxacin, Clindamycin HCl, IV Contrast, Mycins, Streptomycin Sulfate, Toprol XL Start 11:31 07/22/2016 Joycelyn Palacios R.N., Stop 15:05 07/22/2016 Joycelyn Palacios R.N. Medication Administered: IV NS (SALINE), Dose: IV Fluids over 4 hour(s), Rate: 25 mL/hr, Dispensed: 1000 mL bag, Site: #1 left forearm. Medication Ordered: IV NS with Normal Saline 1 Liter: initial bolus none -, then TKO - (NOW). Given 13:44 07/22/2016 Joycelyn Palacios R.N. Medication Administered: ZOFRAN [IVP] (ONDANSETRON HCL), Dose: 4 mg IVP over 2 minute(s), Site: #1 left forearm. Medication Ordered: Zofran IV 4 mg (NOW). Given 13:45 07/22/2016 Joycelyn Palacios R.N. Medication Administered: DILAUDID [IVP] (HYDROMORPHONE HCL PF), Dose: 0.25 mg IVP over 1 minute(s), Site: #1 left forearm. Medication Ordered: Dilaudid IV 0.25 mg + 0.25 mg IV (NOW). Given 13:55 07/22/2016 Joycelyn Palacios R.N. Medication Administered: MAALOX [PO] (MAGNESIUM-ALUMINUM), Dose: 15 mL Oral Suspension PO. Medication Ordered: GI Cocktail WHITE PO 30 mL with Lidocaine Viscous Mouth/Throat 15 mL, Maalox Plus Oral 15 mL (NOW). Given 15:05 07/22/2016 Joycelyn Palacios R.N. Medication Administered: DILAUDID [IVP] (HYDROMORPHONE HCL PF), Dose: 0.25 mg IVP over 1 minute(s), Site: #1 left forearm. Medication Ordered: Dilaudid IV 0.25 mg + 0.25 mg IV (NOW).
--- NOTE | 2016-07-25 05:22 | ED MAR SUMMARY ---
..... Medication Administration Record [facility] [address] [place] [address] Patient: BAR VELA Visit ID: [id number] 80y, F Weight: 81.6 kg Height/Length: 64 in BMI: 30.9 ALLERGIES: Ciprofloxacin, Clindamycin HCl, IV Contrast, Mycins, Streptomycin Sulfate, Toprol XL Start 11:31 07/22/2016 Joycelyn Palacios R.N., Stop 15:05 07/22/2016 Joycelyn Palacios R.N. Medication Administered: IV NS (SALINE), Dose: IV Fluids over 4 hour(s), Rate: 25 mL/hr, Dispensed: 1000 mL bag, Site: #1 left forearm. Medication Ordered: IV NS with Normal Saline 1 Liter: initial bolus none -, then TKO - (NOW). Given 13:44 07/22/2016 Joycelyn Palacios R.N. Medication Administered: ZOFRAN [IVP] (ONDANSETRON HCL), Dose: 4 mg IVP over 2 minute(s), Site: #1 left forearm. Medication Ordered: Zofran IV 4 mg (NOW). Given 13:45 07/22/2016 Joycelyn Palacios R.N. Medication Administered: DILAUDID [IVP] (HYDROMORPHONE HCL PF), Dose: 0.25 mg IVP over 1 minute(s), Site: #1 left forearm. Medication Ordered: Dilaudid IV 0.25 mg + 0.25 mg IV (NOW). Given 13:55 07/22/2016 Joycelyn Palacios R.N. Medication Administered: MAALOX [PO] (MAGNESIUM-ALUMINUM), Dose: 15 mL Oral Suspension PO. Medication Ordered: GI Cocktail WHITE PO 30 mL with Lidocaine Viscous Mouth/Throat 15 mL, Maalox Plus Oral 15 mL (NOW). Given 15:05 07/22/2016 Joycelyn Palacios R.N. Medication Administered: DILAUDID [IVP] (HYDROMORPHONE HCL PF), Dose: 0.25 mg IVP over 1 minute(s), Site: #1 left forearm. Medication Ordered: Dilaudid IV 0.25 mg + 0.25 mg IV (NOW).
--- NOTE | 2016-07-25 05:22 | ED MED RECONCILIATION SUMMARY ---
Patient: MIRIAN August Medication Reconciliation Report [facility] VisitID: [id number] [address] [place] [address] 80y, F Registration Date/Time: 07/22/2016 Weight: 81.6 kg Height/Length: 64 in. BMI: 30.9 ALLERGIES: Ciprofloxacin, Clindamycin HCl, IV Contrast, Mycins, Streptomycin Sulfate, Toprol XL The patient's Home Medications are listed below: THE FOLLOWING MEDICATIONS NEED TO BE RECONCILED: Albuterol Sulfate HFA Inhalation Allopurinol Oral Amoxicillin-Pot Clavulanate ER Oral Aspirin 81 mg Candesartan Cilexetil Oral Carvedilol Oral Colchicine Oral Docusate Sodium Fluticasone Propionate Fluticasone Propionate Nasal Furosemide Nystatin Mouth/Throat Simethicone Oral Spironolactone Oral Thyroid Oral Triaamcinolone Triamcinolone & Emollient External The source(s) of the original Home Medication information: Not obtained. The following Medications were given to the patient in the Emergency Department: IV NS IV Fluids bolus 0, then 25 mL/hr, administered: 07/22/2016 11:31:00 AM Zofran [IVP] IVP 4 mg, administered: 07/22/2016 1:44:00 PM Dilaudid [IVP] IVP 0.25 mg, administered: 07/22/2016 1:45:00 PM Maalox [PO] PO 15 mL, administered: 07/22/2016 1:55:00 PM Dilaudid [IVP] IVP 0.25 mg, administered: 07/22/2016 3:05:00 PM The following Medications were prescribed to the patient: Zofran 4 mg: Take 1 orally every six hours as needed for nausea/vomiting. Dispense ten (10). No refills. Substitution is permissible. -- Bart Delaney MD Carafate 1 gm tablets: take 1 orally four times daily (1 hour before meals and at bedtime). Dispense sixty (60). No refills. Substitution is permissible. -- Bart Delaney MD Tagamet 400 mg: Take 1 orally every 12 hours. Dispense thirty (30). No refills. Substitution is permissible. -- Bart Delaney MD Oxycodone/APAP 5 mg/325 mg: take 1-2 tablets orally every 4 hours as needed for pain. Dispense fifteen (15). No refill. -- Bart Delaney MD
== END 2016-07-22 15:15 | disposition home or self-care (01) ==
LOC: ED SRH 10:41
DX: R10.31 Right lower quadrant pain (principal); R10.11 Right upper quadrant pain; Z95.0 Presence of cardiac pacemaker
CPT/HCPCS: 90004; 90074; 90100; 91320; 92031; 92235; 92530; 94060; 95059